=== PATIENT | male | born 1970 | race Caucasian/White ===

== ENCOUNTER 2017-07-25 00:35 | Emergency (ER) | payer OTHER ==
[2017-07-25] MEDS ORDERED: KETOROLAC TROMETHAMINE 60 MG/2 ML VIAL IM ONE (01:06)
--- NOTE | 2017-07-25 01:09 | ED Physician Documentation ---
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 pain is palpably repeatable in mid high axillary line. no sternal back or neck pain Onset: hours (1300) Timing: sudden onset (pt had beenasleep aweoke w/pain) Duration: waxing, waning (worse w/ deep breath) Last known Well Date: 07/20/17 Last Known Well Time: 12:59 Context: onset during:, sleep Severity: mild Quality: none. denies: pressure, tightness, indigestion, burning, dull, sharp Chest Pain Radiation: no radiation, jaw, arms, neck, shoulders, sternal notch, epigastric Chest Pain Signs/Symptoms: denies: nausea, vomiting, diaphoresis Worsened By: deep breaths, movement (certain), change in position Relieved By: rest - ROS CONST: no problems MS/LYMPH: none. denies: neck pain, calf pain GI/: none. denies: abdominal pain, problems urinating, vomiting, nausea EYES/ENT: none SKIN/ENDO: none NEURO/PSYCH: none - PAST HX NE risk factors: other (depression MMR DEPRESSION INSOMNIA HYPERLIOPIDEMO\IA). denies: hypertension, diabetes Type 1, cardiac disease DVT/PE Risk Factors: none. denies: recent surgery Neuro deficit: none GI disease: none Lung disease: none (HERNIA) Allergies/Adverse Reactions: Allergies Allergy/AdvReac Type Severity Reaction Status Date / Time miconazole Allergy Verified 07/25/17 00:49 nickel Allergy Verified 07/25/17 00:49 terbinafine HCl Allergy Verified 07/25/17 00:49 [From Lamisil] - SOCIAL HX Smoking History: non-smoker Alcohol Use: none Drug Use: none - FAMILY HX Family HX: none - VITAL SIGNS Vital Signs: Vital Signs Temp Pulse Resp BP Pulse Ox 82 16 122/98 97 07/25/17 00:35 07/25/17 00:35 07/25/17 00:35 07/25/17 00:35 - REVIEWED ASSESSMENTS Nursing Assessment Reviewed: Yes Vitals Reviewed: Yes ED Results Lab/Radiology - Orders Orders: ED Orders Category Date Time Status Ketorolac Tromethamine [Toradol] Med 07/25/17 01:06 Once 60 mg IM NOW ONE Chest Pain Physical Exam - EXAM General Appearance: mild distress. No: anxious, lethargic, hyperventilating EENT: eye inspection normal Neck: nml inspection, no carotid bruit Respiratory: no resp. distress, nml breath sounds, manifests distinct pain on movement, right. No: chest non-tender, decreased air movement, wheezes, rales, rhonchi CVS: reg. rate & rhythm, no murmur Abdomen: soft, non-tender Skin: warm/dry, normal color. No: cyanosis, diaphoresis, jaundice, mottled Extremities: non-tender, normal range of motion (MOVEMENT RT ARM IN ROM AGGRAVATES THEAREA SLIGHTLY-BREATH SOUNDS UNDERNEATH = CTA) Neuro: oriented X3, motor nml, sensation nml, mood/affect nml, cognition normal Discharge Clincal Impression: RT LATERAL MID AXILLARY RIB PAIN Condition: Good Disposition: 01 HOME, SELF-CARE Decision to Admit: NO Decision Time: 01:17
[2017-07-25 01:34] VITALS: BP 114/84
== END 2017-07-25 01:25 | disposition home or self-care (01) ==
LOC: ED 00:35
DX: R07.89 Other chest pain (principal)
CPT/HCPCS: 93005; J1885; 96372; 99283

== ENCOUNTER 2019-02-25 22:21 | Emergency (ER) | payer MEDICARE, OTHER ==
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
[2019-02-25] MEDS ORDERED: IBUPROFEN 400 MG TABLET PO ONE (23:15)
--- NOTE | 2019-02-25 23:18 | Diagnostic Imaging Report ---
BERNIE TARIQ [facility] [address] [facility] [address], [place]. [address] Report Submission Date: Feb 25, 2019 11:05:26 PM CDT Patient Study Name: LUCA DRAPER Date: Feb 25, 2019 10:47:42 PM CDT Modality Type: DX Gender: M Description: HAND 3 VIEWS OR MORE : 72 Institution: [facility] Physician: BERNIE TARIQ Three views of the left hand Clinical history: Injury. Findings: Examination of the left hand in palmar, lateral and oblique fails to demonstrate evidence of fracture, dislocation or other bone or joint pathology. Electronically signed on Feb 25, 2019 11:05:26 PM CDT by: Govind ANSARI
[2019-02-25 23:21] VITALS: BP 128/85
== END 2019-02-25 23:18 | disposition home or self-care (01) ==
LOC: ED 22:21
DX: M79.642 Pain in left hand (principal)
CPT/HCPCS: 73130; 99283